=== PATIENT | male | born 1940 | race Caucasian/White ===

== ENCOUNTER 2020-07-10 10:49 | Inpatient (IN) | payer OTHER, MEDICARE ==
[~2020-07-10] VITALS: Ht 172.7 cm; Wt 86.4 kg
[~2020-07-10 10:49] MED LIST: ASPI81CH PO; CHOL10002; Cholecalciferol1 GM MC; Diclofenac Sod2.5 ML; HYDRA25 PO; INS70/30PN SC; INSULANPEN; LISI5 PO; OFLO.3OPSO; OMEP20ER PO; POTCHL20ER PO; PRED1SU; RAMI5 PO; SPIR50 PO
[2020-07-10 12:00] LABS: BASOPHILS ABSOLUTE AUTO 0.03 K/mm3 (0.00-0.23); BASOPHILS PERCENT AUTO 0 % (0-2); EOSINOPHILS PERCENT AUTO 0 % (0-6); Hematocrit 38.6 % (37.0-53.0); Hemoglobin 12.6 g/dL (13.5-17.5); IMMATURE GRAN ABSOLUTE AUTO 0.03 K/mm3 (0.00-0.10); IMMATURE GRAN PERCENT AUTO 0 % (0-1); LYMPHOCYTES ABSOLUTE AUTO 0.25 K/mm3 (0.84-5.20); LYMPHOCYTES PERCENT AUTO 2 % (21-46); MONOCYTES ABSOLUTE AUTO 0.38 K/mm3 (0.16-1.47); MONOCYTES PERCENT AUTO 4 % (4-13); Mean Corpuscular HGB 29.4 pg (26.0-34.0); Mean Corpuscular HGB Conc 32.6 g/dL (31.5-36.5); Mean Corpuscular Volume 90 fL (80-100); Mean Platelet Volume 11.9 fL (9.1-12.4); NEUTROPHILS ABSOLUTE AUTO 10.25 K/mm3 (1.96-9.15); NEUTROPHILS PERCENT AUTO 94 % (41-73); Platelet Count 117 K/mm3 (150-400); RDW Coefficient Variation 13.3 % (11.7-14.2); RDW Standard Deviation 43.9 fL (35.1-46.3); Red Blood Cell Count 4.28 M/mm3 (4.30-5.90); White Blood Cell Count 10.94 K/mm3 (4.00-11.30)
[2020-07-10 12:22] LABS: Albumin, Blood 3.7 g/dL (3.4-5.0); Albumin/Globulin Ratio 0.9 (0.8-1.8); Bilirubin, Total 0.9 mg/dL (0.1-1.0); Bun/Creatinine Ratio 31.7 (12.0-20.0); Calcium, Blood 8.8 mg/dL (8.5-10.1); Creatine Kinase MB 3.5 ng/mL (0.0-3.6); Creatine Kinase MB Index 0.9 (0.0-4.0); Creatinine, Blood 2.02 mg/dL (0.60-1.20); Globulin, Blood 3.9 g/dL (2.2-4.0); Potassium, Blood 5.6 mmol/L (3.5-5.5); Total Protein, Blood 7.6 g/dL (6.4-8.2); Troponin I 0.016 ng/mL (0.000-0.040)
[2020-07-10] MEDS ORDERED: INSULANPEN SC (14:53)
[2020-07-10] MEDS ORDERED: TAMS.4ER PO (14:53)
[2020-07-10] MEDS ORDERED: AMLO10 PO (14:54)
[2020-07-10] MEDS ORDERED: ALBU90OI INH (14:54)
[2020-07-10] MEDS ORDERED: CODACE30 PO (14:55)
[2020-07-10] MEDS ORDERED: CYCLOBENZAPRINE5 MG PO (14:55)
[2020-07-10] MEDS ORDERED: FAMO20 PO (14:56)
[2020-07-10] MEDS ORDERED: DEXTRAN/GLYCER/HYPRO BOTHEYES (14:58)
[2020-07-10] MEDS ORDERED: ISODIN20 PO (14:58)
[2020-07-10] MEDS ORDERED: TORS10 PO (14:59)
[2020-07-10] MEDS ORDERED: MULVITA PO (14:59)
[2020-07-10] MEDS ORDERED: ZESTRIL40 M1 PO (14:59)
[2020-07-10 15:04] LABS: Percent Saturation 12.4 % (20.0-50.0)
[2020-07-10 15:11] LABS: Source, Urine Clean Catch
[2020-07-10 15:17] LABS: Appearance, Urine Clear (Clear); Bilirubin, Urine Neg (Neg); Blood, Urine Neg (Neg); Color, Urine Yellow (P-Yellow); Glucose Qualitative, Urine Neg (Neg); Ketones, Urine 1+ (Neg); Leukocyte Esterase, Urine Neg (Neg); Nitrite, Urine Neg (Neg); Protein, Urine Neg (Neg); Urobilinogen, Urine NORM (Normal)
[2020-07-10 16:21] LABS: Thyroid Stimulating Hormone 0.435 uIU/mL (0.360-4.800)
--- NOTE | 2020-07-10 19:58 | NUR ---
PT PULLED OWN IV OUT EXPLAINING HE'D DONE SO "FOR THE FOOTBALL GAME ON TV". HE SEEMS ORIENTED X2-3 BUT IS VERY FORGETFULL AND IMPULSIVE. BED ALARM ON. IV REPLACED AND SECURED WELL BY KNUCKLER (BETH NUR) W/PT EDUCATED. HE EXPRESSED UNDERSTANDING BUT RESTRAINTS MAY BE REQUIRED IF PT CONT'S TO HAVE UNPREDICTABLE BEHAVIOR.
--- NOTE | 2020-07-11 04:32 | NUR ---
SUMMARY: PT ORIENTED TO SELF AND FAMILY BUT IS VERY FORGETFULL AND IMPULSIVE. HE'S CONFUSED TO PLACE AND REPEATEDLY THINKS HE'S HOME DESPITE REORIENTATION. HE PULLED HIS IV OUT AT START OF SHIFT AND REMOVED TELEMETRY T/O NOCTE. IV WAS REPLACED W/IVF RESTARTED. HIS R.ARM REMAINS IN A SLING D/T HUMERUS FX AND BED ALARM IS ON FOR FALL RISK. PT FOUND DOWN PRIOR TO ADMIT. JADE RECIEVED X1 FOR TOLERABLE RELIEF OF R.SHOULDER PAIN. HE ATTEMPTED TO USED URINAL W/O SUCCESS BUT VOIDED/HAD X1 SM.HARD BM VIA 1PA PIVOT T/F TO BSC. PT ATTENDS WERE DAMP W/JUVENAL CARE/ATTENDS CHANGE COMPLETED. HE REMAINS ON TELEMETRY IN NSR W/BBB AND 1ST DEGREE BLOCK AT 60'S-80'S BPM. NO ACUTE CHANGES, VSS/AFEBRILE. [facility] MED LIST NEEDS REVISED PER KANWAL, PREVIOUS DAY RN. WILL REPORT/ENSURE DAY RN AWARE.
[2020-07-11 04:39] LABS: BASOPHILS ABSOLUTE AUTO 0.04 K/mm3 (0.00-0.23); BASOPHILS PERCENT AUTO 0 % (0-2); EOSINOPHILS ABSOLUTE AUTO 0.06 K/mm3 (0.00-0.68); EOSINOPHILS PERCENT AUTO 1 % (0-6); Hematocrit 34.4 % (37.0-53.0); Hemoglobin 11.1 g/dL (13.5-17.5); IMMATURE GRAN ABSOLUTE AUTO 0.03 K/mm3 (0.00-0.10); IMMATURE GRAN PERCENT AUTO 0 % (0-1); LYMPHOCYTES ABSOLUTE AUTO 0.75 K/mm3 (0.84-5.20); LYMPHOCYTES PERCENT AUTO 7 % (21-46); MONOCYTES ABSOLUTE AUTO 0.94 K/mm3 (0.16-1.47); MONOCYTES PERCENT AUTO 9 % (4-13); Mean Corpuscular HGB 29.1 pg (26.0-34.0); Mean Corpuscular HGB Conc 32.3 g/dL (31.5-36.5); Mean Corpuscular Volume 90 fL (80-100); Mean Platelet Volume 11.9 fL (9.1-12.4); NEUTROPHILS ABSOLUTE AUTO 8.26 K/mm3 (1.96-9.15); NEUTROPHILS PERCENT AUTO 82 % (41-73); Platelet Count 125 K/mm3 (150-400); RDW Coefficient Variation 13.3 % (11.7-14.2); RDW Standard Deviation 44.2 fL (35.1-46.3); Red Blood Cell Count 3.81 M/mm3 (4.30-5.90); White Blood Cell Count 10.08 K/mm3 (4.00-11.30)
[2020-07-11 05:01] LABS: Albumin, Blood 3.2 g/dL (3.4-5.0); Albumin/Globulin Ratio 0.9 (0.8-1.8); Bilirubin, Total 0.9 mg/dL (0.1-1.0); Bun/Creatinine Ratio 38.7 (12.0-20.0); Calcium, Blood 7.9 mg/dL (8.5-10.1); Creatinine, Blood 1.5 mg/dL (0.60-1.20); Globulin, Blood 3.4 g/dL (2.2-4.0); Magnesium, Blood 2.8 mg/dL (1.6-2.4); Potassium, Blood 4.8 mmol/L (3.5-5.5); Total Protein, Blood 6.6 g/dL (6.4-8.2)
--- NOTE | 2020-07-11 19:49 | NUR ---
bsr shared with noc nurse, pt resting comfortably, call light in reach
--- NOTE | 2020-07-11 20:25 | NUR ---
ASSUMED CARE. IKER AOX1, UNABLE TO STATE ANSWER TO OTHER ORIENTATION QUESTIONS. PLEASANT AND COOPERATIVE. DOES REMEMBER HE FELL. DENIES PAIN OR DISCOMFORT. RIGHT ARM IN SLING, BRUISING NOTED. DENIED NUMBNESS AND TINGLING. GOOD CIRC ON FINGERS. NO EDEMA NOTED. ATTENDS CHANGED. REPOSITIONED UP IN BED. IVF INFUSING WELL. BED ALARM ON, CALL LIGHT IS IN REACH. PM MEDS GIVEN.
--- NOTE | 2020-07-12 01:31 | NUR ---
CAMERA MONITOR CALLED. IKER WAS TRYING TO GET UP OUT OF BED. HE IS VERY CONFUSED AND THINKS HE HAS TO GET HIS CREW READY TO GO GET GOLD BEFORE THE OTYHER TEAMS. STATES HE HAS TO DO IT NO MATTER WHAT. CAN NOT REMEMBER WHERE HE IS AT OR WHAT IS GOING ON. VEST ON.
--- NOTE | 2020-07-12 05:25 | NUR ---
SHIFT SUMMARY: AOX2 KNOWS NAME, AND EVENT. CONFUSED ON OTHER ASPECTS. INSISTED LAST NIGHT THAT HE HAD TO GET UP AND GET A TEAM TOGETHER BEFORE EVERONE ELSE DOES TO GO GET THE MILLIONS OF MONEY IN [place] [place]. HE ALSO CONTINUED TO STATE HE WAS GOING TO SHOOT PEOPLE, AND ALOT OF PEOPLE ARE GOING TO . HE FOLLOWED DIRECTION WELL. PETER VEST REMAINED IN USE. SLING TO RIGHT SHOULDER STILL IN PLACE. DENIED ANY PAIN OR DISCOMFORT OTHER THEN WHEN HE MOVED THE ARM. INCONTIENT OF URINE. VS WNL, AFEBRILE. REPOSITIONED PRN. TELE SINUS WITH OCCATIONAL PVC'S. IVF INFUSING T/O NIGHT. CALL LIGHT WITH IN REACH, MED ALARM IS ON.
[2020-07-12 11:59] LABS: Anion Gap 6 mmol/L (6-16); Blood Urea Nitrogen 26 mg/dL (8-24); Bun/Creatinine Ratio 25.7 (12.0-20.0); CO2, Blood 21 mmol/L (21-32); Chloride, Blood 119 mmol/L (98-108); Creatinine, Blood 1.01 mg/dL (0.60-1.20); Glomerular Filtration Rate >60 (60-); Glucose, Blood 154 mg/dL (70-99); Potassium, Blood 4.2 mmol/L (3.5-5.5); Sodium, Blood 146 mmol/L (136-145)
--- NOTE | 2020-07-12 19:07 | NUR ---
SHIFT SUMMARY: NO ACUTE CHANGES TO REPORT THIS SHIFT. PT ALERT; ORIENTED TO SELF; IMPULSIVE; CONFUSED; PETER VEST IN PLACE FOR PT SAFETY. NO C/O PAIN THIS SHIFT. NS @ 125 CONTINUING; PT & OT FOLLOWING. REPORT GIVEN TO ONCOMING RN.
--- NOTE | 2020-07-12 21:55 | NUR ---
ASSUMED CARE. AOX2, KNOWS MONTH AND YEAR BUT IS STILL HAVING TROUBLE REMEMBER EVERYTHING ELSE. DOES STATES HE KNOWS HIS MEMORY IS NOT RIGHT. BRUISING TO RIGHT SHOULDER IS GETTING BETTER, STILL SWOLLEN. PAIN ONLY WITH MOVEMENT. SUPPORTED THE ARM ON PILLOW. REPOSITIONED IN BED. IVF INFUSING WELL. DENIED NEED FOR PAIN. STATES HE STILL VERY SLEEPY. PM MEDS GIVEN. NO OTHER CONCERNS TO NOTE. CALL LIGHT IN REACH, BED ALARM ON.
--- NOTE | 2020-07-13 05:51 | NUR ---
SHIFT SUMMARY: CLEARER COGNITION TONIGHT, WAS ABLE TO STATE DAY AND YEAR, AND ACKNOWLEGE HE IS HAVING TROUBLE REMEMBERING. DID STATES HE IS SLEEPING ALOT. RIGHT SHOULDER STILL SWOLLEN BUT BRUISING IS HEALING. OFFERED ICE BUT HE SAID IT WOULD BE TO COLD. NO PAIN MEDICATION NOTED. VS WNL, AFEBRILE. INCONTIENT OF URINE AND BOWEL. NO SKIN BREAKDOWN. CALL LIGHT IS IN REACH, BED ALARM ON.
--- NOTE | 2020-07-13 16:20 | NUR ---
SUMMARY PT IS A/O X2, ANSWER BASIC QUESTIONS APPROP THIS AM HOWEVER VERY FORGETFUL OF EVENTS LEADING TO ADMIT, STATE UNABLE TO RECALL HOW HE FX R SHOULDER, STATE "I GOT SHOT", REQUIRE REORIENTTATION. STATE CONTINIUNG R SHOULDER PAIN THAT INCREASES w MOVEMENT, CONINUES IN R ARM SLING. HAVE GIVEN PRN TYLENOL & NORCO FOR RELIEF/CONTROL TODAY. HE PARTICIPATE w PT/OT. PETER RESTRAINT D/C THIS AM, PT HAS BEEN CALM/COOPERATIVE, DOES NOT ATTEMPT UP W/O ASSIST. VSS/AFEBRILE.
--- NOTE | 2020-07-14 04:44 | NUR ---
SHIFT SUMMARY- PT. A&O, FORGETFUL AT TIMES. C/O R SHOULDER PAIN LAST NIGHT, MEDICATED PER EMAR WITH GOOD EFFECT. R SHOULDER/ARM IN SLING, TOLERATING WELL. PT. CONT/INCONT, ATTENDS IN PLACE AND USES URINAL IN BED. ON BEDREST LAST NIGHT. DENIED ANY OTHER NEEDS DURING THE NIGHT, VSS. CALL LIGHT WITHIN REACH, SIDE RAILS UPX2, AND BED ALARM ON FOR SAFETY. WILL CONT TO MONITOR.
--- NOTE | 2020-07-14 15:53 | NUR ---
SUMMARY PT IS A/O X3, HE CONTINUES TO BE FORGETFUL OF EVENTS R/T R SHOULDER FX HOWEVER MENTATION SEEMS TO BE IMPROVING DAILY. HE IS CALM, PLEASANT/COOPERATIVE. HE HAS BEEN UP PARTICIPATING w AYALA, UP IN CHAIR. R ARM IN SLING. R SHOULDER CONTINUES SWOLLEN/BRUISED S/P FX, HE STATES PAIN w MOVEMENT, HAVE GIVEN TYLENOL & NORCO FOR PAIN RELIEF/CONTROL. VSS/AFEBRILE. PLAN FOR SNF WHEN APPROP.
--- NOTE | 2020-07-15 04:38 | NUR ---
SHIFT SUMMARY- PT. PLEASANT AND COOPERATIVE WITH CARE. FORGETFUL, MEMORY DEFICIT APPEARS TO BE IMPROVING. PT. CAN BE IMPULSIVE AT TIMES, BUT EASILY REDIRECTABLE. MEDICATED 1X LAST NIGHT FOR R SHOULDER PAIN WITH GOOD EFFECT. R ARM REMAINS IN SLING. NO ACUTE EVENTS OVERNIGHT, VSS. CALL LIGHT WITHIN REACH, SIDE RAILS UPX2, AND BED ALARM ON. WILL CONT TO MONITOR.
--- NOTE | 2020-07-15 17:54 | NUR ---
SHIFT SUMMARY PT IS AOX3. PT DENIES PAIN, N/V, SOB. PT WORKED WITH PT/OT AND IS A ONE PERSON ASSIST FOR TRANSFERS. PLAN IS TO DC TO SNF, [facility]. PT IS PLEASANT. PT APPETITE IS GOOD. PT'S SISTER VISITED TODAY. PT IS IN BED, CALL LIGHT IN REACH, BED IN LOW POSITION.
--- NOTE | 2020-07-16 03:48 | NUR ---
SUPPLY CHAIN DEVELOPMENT MANAGER SUMMARY A/OX 2-3, APPEARED TO SLEEP T/O THE NIGHT. C/O DISCOMFORT IN R. SHOULDER WITH PASSIVE MOTION. TELE IN PLACE RUNNING SR IN THE 80S. DENIES SOB. VSS, NO ACUTE CHANGES AT THIS TIME. BED IN LOWEST POSITION, ALARM ON, CALL LIGHT WITHIN REACH. WILL CONTINUE TO MONITOR AND REPORT TO ONCOMING RN.
[2020-07-16 12:17] LABS: BASOPHILS ABSOLUTE AUTO 0.04 K/mm3 (0.00-0.23); BASOPHILS PERCENT AUTO 1 % (0-2); EOSINOPHILS ABSOLUTE AUTO 0.09 K/mm3 (0.00-0.68); EOSINOPHILS PERCENT AUTO 1 % (0-6); Hemoglobin 9.9 g/dL (13.5-17.5); IMMATURE GRAN ABSOLUTE AUTO 0.09 K/mm3 (0.00-0.10); IMMATURE GRAN PERCENT AUTO 1 % (0-1); LYMPHOCYTES ABSOLUTE AUTO 0.78 K/mm3 (0.84-5.20); LYMPHOCYTES PERCENT AUTO 9 % (21-46); MONOCYTES PERCENT AUTO 8 % (4-13); Mean Corpuscular HGB 29.6 pg (26.0-34.0); Mean Corpuscular Volume 90 fL (80-100); Mean Platelet Volume 11.2 fL (9.1-12.4); NEUTROPHILS ABSOLUTE AUTO 6.79 K/mm3 (1.96-9.15); NEUTROPHILS PERCENT AUTO 80 % (41-73); Platelet Count 170 K/mm3 (150-400); RDW Coefficient Variation 13.4 % (11.7-14.2); Red Blood Cell Count 3.35 M/mm3 (4.30-5.90); White Blood Cell Count 8.49 K/mm3 (4.00-11.30)
[2020-07-16 12:34] LABS: Alanine Aminotransfer (ALT/SGP 54 U/L (12-78); Albumin, Blood 2.4 g/dL (3.4-5.0); Albumin/Globulin Ratio 0.8 (0.8-1.8); Alk Phos 86 U/L (50-136); Anion Gap 5 mmol/L (6-16); Aspartate Aminotrans (AST/SGOT 39 U/L (12-37); Bilirubin, Total 0.8 mg/dL (0.1-1.0); Blood Urea Nitrogen 14 mg/dL (8-24); Bun/Creatinine Ratio 16.4 (12.0-20.0); CO2, Blood 28 mmol/L (21-32); Chloride, Blood 111 mmol/L (98-108); Creatinine, Blood 0.85 mg/dL (0.60-1.20); Globulin, Blood 3.2 g/dL (2.2-4.0); Glomerular Filtration Rate >60 (60-); Glucose, Blood 153 mg/dL (70-99); Potassium, Blood 4.1 mmol/L (3.5-5.5); Sodium, Blood 144 mmol/L (136-145); Total Protein, Blood 5.6 g/dL (6.4-8.2)
--- NOTE | 2020-07-16 19:13 | NUR ---
SHIFT SUMMARY IKER GOT UP WITH PT TODAY TO CHAIR WITH AO1 AND A CANE. R ARM NWB IN A SLING. R SHOULDER JOINT VERY SWOLLEN AND BRUISED. TELE AND CBG'S DC'D. LOW GRADE TEMP OF 100.3, DR PIERRE NOTIFIED. PT STATES HE FELT 'BAD' AND DIDN'T WANT TO EAR BREAKFAST OR LUNCH, DR PIERRE AWARE. FEELING BETTER THIS EVENING, AND ATE A FULL DINNER. TOOK TWO DOSES PO PAIN MEDS TO GOOD EFFECT. CALL LIGHT IN REACH, REPORT GIVEN TO NIGHT NURSE
--- NOTE | 2020-07-17 03:44 | NUR ---
CANNERY WORKER SUMMARY A/O 2-3. UP TO BATHROOM WITH 1 ASSIST AND CANE. APPEARED TO SLEEP T/O THE NIGHT. PLEASANT AND COOPERATIVE. DENIES SOB. REPORTS SOME PAIN TO R. SHOULDER WITH PASSIVE MOTION. VSS, NO ACUTE CHANGES AT THIS TIME. BED IN LOWEST POSITION, ALARM ON, CALL LIGHT WITHIN REACH. REMOTE VIDEO MONITORING VERIFIED. WILL CONTINUE TO MONITOR AND REPORT TO ONCOMING RN.
--- NOTE | 2020-07-17 16:37 | NUR ---
PATIENT HAS BEEN VERY TIRED AND SLEEPING FOR THE MAJORITY OF THE DAY. PLEASANT AND COOPERATIVE WITH STAFF. VITALS HAVE BEEN STABLE AND WNL. NO COMPLAINTS OF PAIN OR DISCOMFORT. PATIENT CONTINUES TO SLEEP IN HIS BED AT THIS TIME. CALL LIGHT IS WITHIN REACH.
[2020-07-18 05:47] LABS: Hematocrit 31.6 % (37.0-53.0); Hemoglobin 10.4 g/dL (13.5-17.5); Mean Corpuscular HGB 29.8 pg (26.0-34.0); Mean Corpuscular HGB Conc 32.9 g/dL (31.5-36.5); Mean Corpuscular Volume 91 fL (80-100); Mean Platelet Volume 11.1 fL (9.1-12.4); Platelet Count 174 K/mm3 (150-400); RDW Coefficient Variation 13.9 % (11.7-14.2); RDW Standard Deviation 45.1 fL (35.1-46.3); Red Blood Cell Count 3.49 M/mm3 (4.30-5.90); White Blood Cell Count 8.66 K/mm3 (4.00-11.30)
--- NOTE | 2020-07-18 05:47 | NUR ---
SHIFT SUMMARY AOX3-UNAWARE SITUATION THAT BROUGHT HIM TO HOSPITAL. FORGETFUL. FOLLOWS DIRECTIONS. VSS. REPORTS 5/10 PAIN IN R SHOULDER, WORSE c MOVEMENT, MEDICATED 2X c NORCO. R ARM IN SLING, HAS BRUISING & YELLOW DISCOLORATION T/O SKIN ON UPPER ARM. R HAND DEPENDENT EDEMA, ELEVATED ARM/HAND ON PILLOW, EDEMA HAS DECREASED THIS AM. CONTINENT OF URINE, USES URINAL. PLAN TO DC TO SNF FOR THERAPY. CALL LIGHT & BED ALARM ON FOR SAFETY. WILL MONITOR.
[2020-07-18] MEDS ORDERED: ACET325 PO (11:29)
[2020-07-18] MEDS ORDERED: ALBU90OI INH (11:30)
[2020-07-18] MEDS ORDERED: DOCUZEN 8.6-501 EACH PO (11:31)
[2020-07-18] MEDS ORDERED: MIRALAX17 GM PO (11:32)
[2020-07-18] MEDS ORDERED: HYDR1TAB94 PO (11:32)
--- NOTE | 2020-07-18 14:46 | NUR ---
DISCHARGE NOTE PATIENT DISCHARGED TO HOME WITH HOME HEALTH. PATIENT TO LIVE WITH SISTER. PATIENT ALERT AND ORIENTED THROUGHOUT THIS SHIFT. PATIENT WORKED WITH PHYSICAL THERAPY THIS SHIFT, AMBULATED IN THE HALLWAY WITH A 4-POINT CANE. PATIENT TOLERATED AMBULATION WELL. IV REMOVED PRIOR TO DISCHARGE. PATIENT OCCASIONALLY FORGETFUL THIS SHIFT. PATIENT SITTING UP IN BED FOR MOST OF THIS SHIFT. PATIENT PROVIDED WITH DISCHARGE INFORMATION WITH SISTER IN THE ROOM. PATIENT TO VEHICLE VIA WHEELCHIAR BY CORTNEY.
== END 2020-07-18 14:30 | disposition home health service (06) | DRG 682 ==
LOC: ER 10:49 → MEDS 14:23 → ENPENDDIS 07-18 11:03 → MEDS 07-18 14:30
PROVIDERS: Internal Medicine; Physician Assistant; ADMIT Internal Medicine
DX: N17.9 Acute kidney failure, unspecified (principal); G93.41 Metabolic encephalopathy; G92 Toxic encephalopathy; S42.201A Unspecified fracture of upper end of right humerus, initial encounter for closed fracture; F03.91 Unspecified dementia, unspecified severity, with behavioral disturbance; F05 Delirium due to known physiological condition; E86.0 Dehydration; G20 Parkinson's disease; W19.XXXA Unspecified fall, initial encounter; D63.1 Anemia in chronic kidney disease; I25.10 Atherosclerotic heart disease of native coronary artery without angina pectoris; I12.9 Hypertensive chronic kidney disease with stage 1 through stage 4 chronic kidney disease, or unspecified chronic kidney disease; E11.22 Type 2 diabetes mellitus with diabetic chronic kidney disease; N18.30 Chronic kidney disease, stage 3 unspecified; G89.29 Other chronic pain; M54.9 Dorsalgia, unspecified; I25.2 Old myocardial infarction; Z95.1 Presence of aortocoronary bypass graft; Z87.891 Personal history of nicotine dependence; Z79.4 Long term (current) use of insulin; Z85.46 Personal history of malignant neoplasm of prostate; R54 Age-related physical debility
CPT/HCPCS: 36415; 70450; 73030; 80048; 80053; 81003; 82140; 82550; 82553; 82607; 82728; 82746; 82947; 83540; 83550; 83735; 83880; 84443; 84484; 85025; 85027; 93005; 93010; 94760; 96361; 96374; 96376; 97110; 97116; 97129; 97130; 97162; 97165; 97530; 97535; 99285-25; A9270; J1644; J1885; J7030

== ENCOUNTER 2022-06-27 15:18 | Inpatient (IN) | payer OTHER ==
[~2022-06-27] VITALS: Ht 172.7 cm; Wt 66.5 kg
[~2022-06-27 15:18] MED LIST changes: +ACET325 PO; +ALBU90OI INH; +AMLO10 PO; +CODACE30 PO; +CYCLOBENZAPRINE5 MG PO; +DEXTRAN/GLYCER/HYPRO BOTHEYES; +DOCUZEN 8.6-501 EACH PO; +FAMO20 PO; +HYDR1TAB94 PO; +INSULANPEN SC; +ISODIN20 PO; +MIRALAX17 GM PO; +MULVITA PO; +TAMS.4ER PO; +TORS10 PO; +ZESTRIL40 M1 PO
[2022-06-27 16:57] LABS: BASOPHILS ABSOLUTE AUTO 0.03 K/mm3 (0.00-0.23); BASOPHILS PERCENT AUTO 0 % (0-2); EOSINOPHILS PERCENT AUTO 0 % (0-6); Hemoglobin 13.1 g/dL (13.5-17.5); IMMATURE GRAN ABSOLUTE AUTO 0.04 K/mm3 (0.00-0.10); IMMATURE GRAN PERCENT AUTO 0 % (0-1); LYMPHOCYTES ABSOLUTE AUTO 0.54 K/mm3 (0.84-5.20); LYMPHOCYTES PERCENT AUTO 5 % (21-46); MONOCYTES ABSOLUTE AUTO 0.88 K/mm3 (0.16-1.47); MONOCYTES PERCENT AUTO 8 % (4-13); Mean Corpuscular HGB 29.1 pg (26.0-34.0); Mean Corpuscular HGB Conc 33.6 g/dL (31.5-36.5); Mean Corpuscular Volume 87 fL (80-100); NEUTROPHILS ABSOLUTE AUTO 9.93 K/mm3 (1.96-9.15); NEUTROPHILS PERCENT AUTO 87 % (41-73); Platelet Count 123 K/mm3 (150-400); RDW Coefficient Variation 15.5 % (11.7-14.2); RDW Standard Deviation 49.7 fL (35.1-46.3); White Blood Cell Count 11.42 K/mm3 (4.00-11.30)
[2022-06-27 17:04] LABS: Influenza A, PCR NEGATIVE (NEGATIVE); Influenza B, PCR NEGATIVE (NEGATIVE); Resp Syncytial Virus, PCR NEGATIVE (NEGATIVE); SARS-Cov-2 (COVID-19) PCR, MMC NEGATIVE (NEGATIVE)
[2022-06-27 17:20] LABS: Albumin/Globulin Ratio 0.7 (0.8-1.8); Bilirubin, Total 2.2 mg/dL (0.1-1.0); Bun/Creatinine Ratio 36.7 (12.0-20.0); Calcium, Blood 9.5 mg/dL (8.5-10.1); Creatinine, Blood 1.66 mg/dL (0.60-1.20); Globulin, Blood 4.2 g/dL (2.2-4.0); Potassium, Blood 3.6 mmol/L (3.5-5.5); Total Protein, Blood 7.2 g/dL (6.4-8.2)
[2022-06-27 18:02] LABS: Source, Urine Clean Catch
[2022-06-27 18:11] LABS: Appearance, Urine Clear (Clear); Bilirubin, Urine Neg (Neg); Blood, Urine 4+ (Neg); Color, Urine Yellow (P-Yellow); Glucose Qualitative, Urine Neg (Neg); Ketones, Urine Neg (Neg); Leukocyte Esterase, Urine Neg (Neg); Nitrite, Urine Neg (Neg); Protein, Urine 1+ (Neg); Urobilinogen, Urine 1+ (Normal)
[2022-06-27 18:19] LABS: Bacteria Rare /hpf; Hyaline Casts 0-2 /lpf (0-2); Squamous Epithelial Cells Not Seen /hpf (Few); White Blood Cells, Urine 0-2 /hpf (0-5)
[2022-06-27 21:15] LABS: Percent Saturation 17.9 % (20.0-50.0)
--- NOTE | 2022-06-28 04:16 | NUR ---
SHIFT SUMMARY PT ARRIVED TO FLOOR AT 2200, ASSESSMENT COMPLETE, ADMISSION COMPLETE. SKIN ASSESSMENT DONE. NOTED L KNEE PRESSURE ULCER, UPPER BACK EXCORIATION, PICTURES IN CHART, COVERED WOUNDS WITH MEPILEX. ALSO BLE SCABS/SCALING/DUSKY. PT ORIENTED X4, FORGETFUL BUT KNOWS GENERAL IDEA. PT MORE FORGETFUL AND RESTLESS NIGHT WENT ON. PT MIXED CONTINENCE. REMAINED IN BED DURING SHIFT. ON TELE, NSR WITH MULTIPLE PVC'S. NPO FOR SPEECH EVAL, Q 6 BG CHECKS. DENIES PAIN/SOB/ ANY OTHER S/S OF DISTRESS. FREQUENT ROUNDING TO ASSIST PT NEEDS, CALL LIGHT IN REACH.
[2022-06-28 05:29] LABS: BASOPHILS ABSOLUTE AUTO 0.02 K/mm3 (0.00-0.23); BASOPHILS PERCENT AUTO 0 % (0-2); EOSINOPHILS ABSOLUTE AUTO 0.02 K/mm3 (0.00-0.68); EOSINOPHILS PERCENT AUTO 0 % (0-6); Hematocrit 34.2 % (37.0-53.0); Hemoglobin 11.5 g/dL (13.5-17.5); IMMATURE GRAN ABSOLUTE AUTO 0.03 K/mm3 (0.00-0.10); IMMATURE GRAN PERCENT AUTO 0 % (0-1); LYMPHOCYTES ABSOLUTE AUTO 0.82 K/mm3 (0.84-5.20); LYMPHOCYTES PERCENT AUTO 9 % (21-46); MONOCYTES ABSOLUTE AUTO 0.81 K/mm3 (0.16-1.47); MONOCYTES PERCENT AUTO 8 % (4-13); Mean Corpuscular HGB 28.8 pg (26.0-34.0); Mean Corpuscular HGB Conc 33.6 g/dL (31.5-36.5); Mean Corpuscular Volume 86 fL (80-100); Mean Platelet Volume 11.7 fL (9.1-12.4); NEUTROPHILS ABSOLUTE AUTO 7.91 K/mm3 (1.96-9.15); NEUTROPHILS PERCENT AUTO 82 % (41-73); Platelet Count 136 K/mm3 (150-400); RDW Coefficient Variation 15.7 % (11.7-14.2); RDW Standard Deviation 49.5 fL (35.1-46.3); Red Blood Cell Count 3.99 M/mm3 (4.30-5.90); White Blood Cell Count 9.61 K/mm3 (4.00-11.30)
[2022-06-28 06:03] LABS: Albumin, Blood 2.5 g/dL (3.4-5.0); Albumin/Globulin Ratio 0.7 (0.8-1.8); Bilirubin, Total 1.3 mg/dL (0.1-1.0); Bun/Creatinine Ratio 38.6 (12.0-20.0); Calcium, Blood 8.8 mg/dL (8.5-10.1); Creatinine, Blood 1.71 mg/dL (0.60-1.20); Globulin, Blood 3.7 g/dL (2.2-4.0); Potassium, Blood 3.2 mmol/L (3.5-5.5); Total Protein, Blood 6.2 g/dL (6.4-8.2)
--- NOTE | 2022-06-28 12:47 | NUR ---
REPORTED CHANGES IN PT HEART RHYTHM TO DR LUA. NO NEW ORDERS GIVEN. PT A/O NO S/S OF ACUTE DISTRESS, WILL CONTINUE TO MONITOR.
--- NOTE | 2022-06-28 16:48 | NUR ---
Upon receiving a referral for spiritual care, I visit the patient. Patient immediately tells me about his medical problems (which basically all he could articulate is that he falls sometimes).He then talks at length about his life: tours in the [employer], several careers in [employer] his family and his marriage and divorce. He shares that he is not uatsdin but believes in God. He talks about finishing his life well and avoiding falls. I provide therapeutic listening, gentle career technical counselor and prayer. Candelarialouannsuzie responds well and is encouraged by the telling of his own stories. He show signs of an elevated mood.
--- NOTE | 2022-06-28 19:02 | NUR ---
PT ALERT NO S/S OF ACUTE DISTRESS, SAFETY MEASURES IN PLACE REPORT GIVEN TO ON COMING NURSE.
--- NOTE | 2022-06-29 03:28 | NUR ---
SHIFT SUMMARY NO OVERNIGHT EVENTS. PER PT DIDNT SLEEP VERY WELL. ORIENTED X3/4, KNOWS GENERAL IDEAS, FORGETFUL. MORE FIDGETY AND NEEDS REMINDING OF PLAN DURING NIGHT. AMBULATED TO BATHROOM SBA FWW FOR A BOWEL MOVEMENT. TOOK MEDS WHOLE IN [place]UR[place]. DENIES ANY PAIN/SOB/ S/S OF DISTRESS. CALL LIGHT IN REACH, FREQUENT ROUNDING TO ASSESS NEEDS.
[2022-06-29 05:58] LABS: BASOPHILS ABSOLUTE AUTO 0.04 K/mm3 (0.00-0.23); BASOPHILS PERCENT AUTO 1 % (0-2); EOSINOPHILS ABSOLUTE AUTO 0.08 K/mm3 (0.00-0.68); EOSINOPHILS PERCENT AUTO 1 % (0-6); Hematocrit 31.7 % (37.0-53.0); Hemoglobin 10.3 g/dL (13.5-17.5); IMMATURE GRAN ABSOLUTE AUTO 0.04 K/mm3 (0.00-0.10); IMMATURE GRAN PERCENT AUTO 1 % (0-1); LYMPHOCYTES ABSOLUTE AUTO 0.99 K/mm3 (0.84-5.20); LYMPHOCYTES PERCENT AUTO 11 % (21-46); MONOCYTES PERCENT AUTO 10 % (4-13); Mean Corpuscular HGB 28.6 pg (26.0-34.0); Mean Corpuscular HGB Conc 32.5 g/dL (31.5-36.5); Mean Corpuscular Volume 88 fL (80-100); NEUTROPHILS ABSOLUTE AUTO 6.62 K/mm3 (1.96-9.15); NEUTROPHILS PERCENT AUTO 76 % (41-73); Platelet Count 139 K/mm3 (150-400); RDW Coefficient Variation 16.3 % (11.7-14.2); RDW Standard Deviation 52.6 fL (35.1-46.3); White Blood Cell Count 8.67 K/mm3 (4.00-11.30)
[2022-06-29 06:16] LABS: Albumin, Blood 2.3 g/dL (3.4-5.0); Albumin/Globulin Ratio 0.6 (0.8-1.8); Bilirubin, Total 0.7 mg/dL (0.1-1.0); Bun/Creatinine Ratio 31.1 (12.0-20.0); Creatinine, Blood 2.41 mg/dL (0.60-1.20); Globulin, Blood 3.7 g/dL (2.2-4.0); Potassium, Blood 3.6 mmol/L (3.5-5.5)
[2022-06-29 15:37] LABS: Bun/Creatinine Ratio 38.1 (12.0-20.0); Calcium, Blood 8.2 mg/dL (8.5-10.1); Creatinine, Blood 1.94 mg/dL (0.60-1.20); Potassium, Blood 3.6 mmol/L (3.5-5.5)
--- NOTE | 2022-06-29 19:18 | NUR ---
PT RESTING IN BED, NO S/S OF ACUTE DISTRESS. SAFETY MEASURES IN PLACE REPORT GIVEN TO ON COMING NURSE.
--- NOTE | 2022-06-30 04:24 | NUR ---
SHIFT SUMMARY 82 YR M ADMITTED ON 06/27/22 FOR ALTERED MENTAL STATUS. FULL CODE. NO ACUTE CHANGES THIS SHIFT. PT TOOK MEDS WHOLE W/ THICKENED WATER AND WAS PLEASANT AND COOPERATIVE WITH CARE. HE HAS SLEPT FOR MOST OF THIS SHIFT AND HAS NOT CALLED FOR ASSISTANCE. BLOOD GLUCODE READING WAS 229 W/ NO COVERAGE NEEDED. HE WAS A&O X 4.
[2022-06-30 05:51] LABS: BASOPHILS ABSOLUTE AUTO 0.03 K/mm3 (0.00-0.23); BASOPHILS PERCENT AUTO 1 % (0-2); EOSINOPHILS ABSOLUTE AUTO 0.14 K/mm3 (0.00-0.68); EOSINOPHILS PERCENT AUTO 2 % (0-6); Hematocrit 30.3 % (37.0-53.0); Hemoglobin 9.9 g/dL (13.5-17.5); IMMATURE GRAN ABSOLUTE AUTO 0.03 K/mm3 (0.00-0.10); IMMATURE GRAN PERCENT AUTO 1 % (0-1); LYMPHOCYTES ABSOLUTE AUTO 0.85 K/mm3 (0.84-5.20); LYMPHOCYTES PERCENT AUTO 13 % (21-46); MONOCYTES PERCENT AUTO 11 % (4-13); Mean Corpuscular HGB 28.8 pg (26.0-34.0); Mean Corpuscular HGB Conc 32.7 g/dL (31.5-36.5); Mean Corpuscular Volume 88 fL (80-100); Mean Platelet Volume 11.5 fL (9.1-12.4); NEUTROPHILS ABSOLUTE AUTO 4.71 K/mm3 (1.96-9.15); NEUTROPHILS PERCENT AUTO 73 % (41-73); Platelet Count 127 K/mm3 (150-400); RDW Coefficient Variation 15.9 % (11.7-14.2); RDW Standard Deviation 51.8 fL (35.1-46.3); Red Blood Cell Count 3.44 M/mm3 (4.30-5.90); White Blood Cell Count 6.46 K/mm3 (4.00-11.30)
[2022-06-30 06:09] LABS: Calcium, Blood 8.1 mg/dL (8.5-10.1); Creatinine, Blood 1.54 mg/dL (0.60-1.20); Potassium, Blood 3.9 mmol/L (3.5-5.5)
--- NOTE | 2022-06-30 19:21 | NUR ---
PT RESTING IN BED NO S/S OF ACUTE DISTRESS, SAFETY MEASURES IN PLACE. REPORT GIVEN TO ON COMING NURSE.
--- NOTE | 2022-07-01 04:36 | NUR ---
I WAS NOTIFIED PER SYSTEMS ACCOUNTANT RICARDO THAT PT IS TOUCHING DOWN LOW 27.PT IS DOWN BRIEFLY ONLY AND COMING BACK UP.HOWEVER,THIS HAS HAPPENED 3-4 TIMES AND DISTANCE APART IS NOT CREATNG A PAUSE, BUT "BORDERLINE" PAUSE.PT HAS BEEN SLEEPING DURING THESE EPISODES WITH NO C/O WHEN HE WAKES.I NOTIFIED DR RUVALCABA AND WAS INSTRUCTED TO MONITOR AT THIS TIME WITH NO NEW ORDERS.
[2022-07-01 06:29] LABS: BASOPHILS ABSOLUTE AUTO 0.03 K/mm3 (0.00-0.23); BASOPHILS PERCENT AUTO 1 % (0-2); EOSINOPHILS ABSOLUTE AUTO 0.19 K/mm3 (0.00-0.68); EOSINOPHILS PERCENT AUTO 3 % (0-6); Hematocrit 30.1 % (37.0-53.0); Hemoglobin 9.6 g/dL (13.5-17.5); IMMATURE GRAN ABSOLUTE AUTO 0.02 K/mm3 (0.00-0.10); IMMATURE GRAN PERCENT AUTO 0 % (0-1); LYMPHOCYTES ABSOLUTE AUTO 1.01 K/mm3 (0.84-5.20); LYMPHOCYTES PERCENT AUTO 17 % (21-46); MONOCYTES ABSOLUTE AUTO 0.62 K/mm3 (0.16-1.47); MONOCYTES PERCENT AUTO 10 % (4-13); Mean Corpuscular HGB 28.4 pg (26.0-34.0); Mean Corpuscular HGB Conc 31.9 g/dL (31.5-36.5); Mean Corpuscular Volume 89 fL (80-100); Mean Platelet Volume 10.9 fL (9.1-12.4); NEUTROPHILS ABSOLUTE AUTO 4.14 K/mm3 (1.96-9.15); NEUTROPHILS PERCENT AUTO 69 % (41-73); Platelet Count 130 K/mm3 (150-400); RDW Coefficient Variation 15.9 % (11.7-14.2); RDW Standard Deviation 51.9 fL (35.1-46.3); Red Blood Cell Count 3.38 M/mm3 (4.30-5.90); White Blood Cell Count 6.01 K/mm3 (4.00-11.30)
[2022-07-01 06:53] LABS: Bun/Creatinine Ratio 37.6 (12.0-20.0); Calcium, Blood 8.2 mg/dL (8.5-10.1); Creatinine, Blood 1.17 mg/dL (0.60-1.20); Potassium, Blood 3.8 mmol/L (3.5-5.5)
--- NOTE | 2022-07-01 07:16 | NUR ---
SUMMARY PT WITH NO FURTHER ACUTE CHANGES.CONTINUES TO BE MONITORED ON TELE.
--- NOTE | 2022-07-02 05:04 | NUR ---
Neuro AOX4 at the begining of shift, became confused as the night progressed about time an situation. Pupils +3 PERRLA, denies headache or diziness. Able to move all extrimities, sensation intact in all extrimities. Resp Room Air Lung sounds clear in all lobes, denies SOB Cardiac, Pulses strong bilateral radial and and elida +1 bilateral pedal. Mucous membranes pink and intact. Sinus rhythym 72 with PVC's. 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 Patient remains assymptomatic. GI ADA diet, swallows pills whole. Bowel sounds audible in all quadrants. Voids in a Urinal and ambulates in the bathroom during awake hours. Denies pain with urination. Urine clear-yellow with no sedimentation or foul odor. ]\ [facility] [place] Ambulates with x1 assistance DVT prophylaxis with lovenox SQ. Labs reviewed and WNL.
[2022-07-02 06:01] LABS: BASOPHILS ABSOLUTE AUTO 0.04 K/mm3 (0.00-0.23); BASOPHILS PERCENT AUTO 1 % (0-2); EOSINOPHILS ABSOLUTE AUTO 0.13 K/mm3 (0.00-0.68); EOSINOPHILS PERCENT AUTO 2 % (0-6); Hematocrit 33.3 % (37.0-53.0); Hemoglobin 10.7 g/dL (13.5-17.5); IMMATURE GRAN ABSOLUTE AUTO 0.04 K/mm3 (0.00-0.10); IMMATURE GRAN PERCENT AUTO 1 % (0-1); LYMPHOCYTES PERCENT AUTO 14 % (21-46); MONOCYTES ABSOLUTE AUTO 0.72 K/mm3 (0.16-1.47); MONOCYTES PERCENT AUTO 9 % (4-13); Mean Corpuscular HGB 28.6 pg (26.0-34.0); Mean Corpuscular HGB Conc 32.1 g/dL (31.5-36.5); Mean Corpuscular Volume 89 fL (80-100); NEUTROPHILS ABSOLUTE AUTO 5.98 K/mm3 (1.96-9.15); NEUTROPHILS PERCENT AUTO 75 % (41-73); Platelet Count 147 K/mm3 (150-400); RDW Coefficient Variation 15.9 % (11.7-14.2); RDW Standard Deviation 52.2 fL (35.1-46.3); Red Blood Cell Count 3.74 M/mm3 (4.30-5.90); White Blood Cell Count 8.01 K/mm3 (4.00-11.30)
[2022-07-02 06:56] LABS: Anion Gap Unable to Calculate mmol/L (6-16); Blood Urea Nitrogen 28 mg/dL (8-24); Bun/Creatinine Ratio 29.5 (12.0-20.0); CO2, Blood 33 mmol/L (21-32); Calcium, Blood 8.6 mg/dL (8.5-10.1); Chloride, Blood 111 mmol/L (98-108); Creatinine, Blood 0.95 mg/dL (0.60-1.20); Glomerular Filtration Rate 79 (60-); Glucose, Blood 125 mg/dL (70-99); Potassium, Blood 3.8 mmol/L (3.5-5.5); Sodium, Blood 143 mmol/L (136-145)
--- NOTE | 2022-07-02 16:32 | NUR ---
SHIFT SUMMARY- PT IS ALERT, PLESANT AND COOPERATIVE. PT WAS A BIT MORE CONFUSED THIS AFTERNOON. HE AMBULATED TO THE RESTROOM THIS SHIFT. HE WAS IN THE CHAIR FOR MEALS. HIS APPETITE WAS GOOD. HE IS CURRENTLY IN BED IN THE LOW POSITION CALL LIGHT IN REACH
--- NOTE | 2022-07-03 04:36 | NUR ---
SUMMARY - PATIENT CONFUSED OVERNIGHT. PLEASANT WITH STAFF AND EASILY REDIRECTABLE. ATTEMPTS TO GET OUT OF BED AT NIGHT HE FORGETS WHERE HE IS. NO ACUTE MEDICAL EVENTS OVERNIGHT. VSS. PATIENT ABLE TO AMBULATE TO RESTROOM WITH WALKER STAND BY ASSIST. CALL LIGHT IN REACH. BED IN LOWEST POSITION. THICKNED LIQUIDS PROVIDED. PILLS WHOLE IN APPLESAUCE, PATIENT TOLERATED WELL.
[2022-07-03 09:57] LABS: SARS-Cov-2 (COVID-19) PCR, MMC NEGATIVE (NEGATIVE)
--- NOTE | 2022-07-03 11:15 | NUR ---
DISCHARGE SUMMARY PT DISCHARGED TO [facility]. PT LEFT ROOM VIA WHEELCHAIR WITH TRANSPORTER PRESENT AT 1105. [facility] AT 1108, ALL QUESTIONS ANSWERED. IV DC'D AND BELONGINGS RETURNED.
== END 2022-07-03 11:05 | DRG 682 ==
LOC: ER 15:18 → MEDS 20:14
PROVIDERS: Emergency Medicine; Family Medicine; Student in an Organized Health Care Education/Training Program; ADMIT Student in an Organized Health Care Education/Training Program
DX: N17.9 Acute kidney failure, unspecified (principal); G93.41 Metabolic encephalopathy; E87.0 Hyperosmolality and hypernatremia; I13.0 Hypertensive heart and chronic kidney disease with heart failure and stage 1 through stage 4 chronic kidney disease, or unspecified chronic kidney disease; L03.116 Cellulitis of left lower limb; I50.22 Chronic systolic (congestive) heart failure; E11.22 Type 2 diabetes mellitus with diabetic chronic kidney disease; E87.6 Hypokalemia; N18.31 Chronic kidney disease, stage 3a; R91.1 Solitary pulmonary nodule; I87.2 Venous insufficiency (chronic) (peripheral); I25.10 Atherosclerotic heart disease of native coronary artery without angina pectoris; D63.1 Anemia in chronic kidney disease; R00.1 Bradycardia, unspecified; F03.90 Unspecified dementia, unspecified severity, without behavioral disturbance, psychotic disturbance, mood disturbance, and anxiety; E86.0 Dehydration; F11.10 Opioid abuse, uncomplicated; R13.10 Dysphagia, unspecified; B95.4 Other streptococcus as the cause of diseases classified elsewhere; Z20.822 Contact with and (suspected) exposure to COVID-19; Z79.4 Long term (current) use of insulin; Z79.899 Other long term (current) drug therapy; Z79.811 Long term (current) use of aromatase inhibitors; Z79.51 Long term (current) use of inhaled steroids; I25.2 Old myocardial infarction; Z95.1 Presence of aortocoronary bypass graft; Z98.890 Other specified postprocedural states; Z87.891 Personal history of nicotine dependence; Z85.46 Personal history of malignant neoplasm of prostate
CPT/HCPCS: 0241U; 36415; 70450; 71045; 72125; 76770; 80048; 80053; 81001; 82570; 82728; 82947; 83540; 83550; 83880; 84484; 84540; 85025; 87070; 87075; 87205; 92526; 92610; 93005; 93010; 94760; 96374; 97110; 97116; 97162; 97166; 97530; 97535; 99285-25; A9270; J0696; J1650; J1815; J3480; J7030; J7120; U0004

== ENCOUNTER 2022-10-08 13:32 | Inpatient (IN) | payer OTHER ==
[~2022-10-08] VITALS: Ht 170.2 cm; Wt 81.6 kg
[2022-10-08 14:59] LABS: BASOPHILS ABSOLUTE AUTO 0.03 K/mm3 (0.00-0.23); BASOPHILS PERCENT AUTO 1 % (0-2); EOSINOPHILS ABSOLUTE AUTO 0.06 K/mm3 (0.00-0.68); EOSINOPHILS PERCENT AUTO 1 % (0-6); IMMATURE GRAN ABSOLUTE AUTO 0.02 K/mm3 (0.00-0.10); IMMATURE GRAN PERCENT AUTO 0 % (0-1); LYMPHOCYTES ABSOLUTE AUTO 0.51 K/mm3 (0.84-5.20); LYMPHOCYTES PERCENT AUTO 8 % (21-46); MONOCYTES ABSOLUTE AUTO 0.58 K/mm3 (0.16-1.47); MONOCYTES PERCENT AUTO 9 % (4-13); Mean Corpuscular HGB 27.8 pg (26.0-34.0); Mean Corpuscular HGB Conc 30.6 g/dL (31.5-36.5); Mean Corpuscular Volume 91 fL (80-100); Mean Platelet Volume 11.5 fL (9.1-12.4); NEUTROPHILS ABSOLUTE AUTO 5.36 K/mm3 (1.96-9.15); NEUTROPHILS PERCENT AUTO 82 % (41-73); Platelet Count 162 K/mm3 (150-400); RDW Coefficient Variation 15.7 % (11.7-14.2); RDW Standard Deviation 52.1 fL (35.1-46.3); Red Blood Cell Count 3.95 M/mm3 (4.30-5.90); White Blood Cell Count 6.56 K/mm3 (4.00-11.30)
[2022-10-08 15:39] LABS: Albumin, Blood 2.9 g/dL (3.4-5.0); Albumin/Globulin Ratio 0.6 (0.8-1.8); Bilirubin, Total 0.4 mg/dL (0.1-1.0); Bun/Creatinine Ratio 38.2 (12.0-20.0); Calcium, Blood 8.6 mg/dL (8.5-10.1); Creatinine, Blood 1.91 mg/dL (0.60-1.20); Globulin, Blood 4.6 g/dL (2.2-4.0); Potassium, Blood 5.1 mmol/L (3.5-5.5); Total Protein, Blood 7.5 g/dL (6.4-8.2)
[2022-10-08] MEDS ORDERED: FURO20 PO (16:02)
[2022-10-08] MEDS ORDERED: ATOR40TA PO (16:02)
[2022-10-08] MEDS ORDERED: FURO40 PO (16:03)
[2022-10-08] MEDS ORDERED: METO2.5 PO (16:04)
[2022-10-08] MEDS ORDERED: K-Dur10 MEQ PO (16:05)
[2022-10-08] MEDS ORDERED: Carvedilol12.5 MG PO (16:26)
[2022-10-08 20:03] VITALS: BP 148/51
[2022-10-09 01:45] VITALS: BP 131/53
[2022-10-09 06:13] LABS: Anion Gap Unable to Calculate mmol/L (6-16); Blood Urea Nitrogen 78 mg/dL (8-24); Bun/Creatinine Ratio 49.1 (12.0-20.0); CO2, Blood 35 mmol/L (21-32); Calcium, Blood 8.7 mg/dL (8.5-10.1); Chloride, Blood 105 mmol/L (98-108); Creatinine, Blood 1.59 mg/dL (0.60-1.20); Glomerular Filtration Rate 43 (60-); Glucose, Blood 195 mg/dL (70-99); Potassium, Blood 4.6 mmol/L (3.5-5.5); Sodium, Blood 138 mmol/L (136-145)
--- NOTE | 2022-10-09 06:21 | NUR ---
SHIFT SUMMARY: PT NEW ADMIT FROM ED AT CHANGED OF SHIFT LAST P.M. PT A&OX2. PER REPORT PT HAS HX OF DEMENTIA. THIS SHIFT PT IS PLEASANT AND COOPERATIVE. NO EVIDENCE OF SUNDOWNING OBSERVED. ABLE TO MAKE NEEDS KNOWN AND FOLLOW DIRECTIONS. DENIES ANY FEELINGS OF SOB OR CHEST PAIN. PLACED ON 2-3LPM TO KEEP SATS > 92%. HR IS SINUS REID SUSTAINING IN 40'S WITH OCCASIONAL DIPS INTO HIGH 30'S. PT ASYMPTOMATIC. BLE EDEMA 2 + WITH REDNESS NOTED BILATERLALY ON CALVES, NO OPEN WOUNDS NOTED. VOIDING IN URINAL WITHOUT DIFFICULTY, URINE IS CLEAR/YELLOW. PT IS ORIENTED TO ROOM AND CALL LIGHT. USES CALL LIGHT APPROPIATELY.
[2022-10-09 07:27] VITALS: BP 123/70
--- NOTE | 2022-10-09 11:39 | NUR ---
Spoke with Dr Moyer and discussed case. Pt has dementia with history of Systolic CHF. Pt's echo from a year ago shows EF of 20%. Family may benefit from discussion regarding goals of care. Pt resting in bed and is pleasantly confused. A&OX1. Pt denies pain, nausea, and dyspnea. No S/S of distress at this time. Spoke with Primary RN Any and discussed case. Pt needs assistance with toileting and is occasionaly incontinent. Pt at current condition needs assistance with bathing and dressing. Pt's appetite is poor and only wants to sleep. Called and spoke with Pt's sister Liane who is listed as Healthcare Proxy in H&P. Liane confirms making decisions for Pt. She reports Pt's only living relatives are her and a brother who lives in another state. Listened as Liane reports Pt seeing family consumer science teacher Dr Betancur on a routine bases. She reports her understanding is Pt's heart is not doing well and Dr Irene states Pt is "very sick". Continued therapeutic listening. Engaged in therapeutic conversation regarding goals of care. Liane reports Pt is a DNR. Educated on disease process including trajectory. Discussed hospice as an option and educated on hospice philosophy. Liane reports Pt would want to focus on comfort at this stage in his life and would prefer to avoid hospitalization. Liane is agreeable to hospice services. Discussed hospice agencies to choose from with Liane choosing [facility]. Continued supportive conversation and answered questions. Spoke with Dr Moyer and discussed case. Placed DNR order in [facility] per V/O from Dr Moyer. Spoke with RN Cassius Lin and relayed wishes. Delia will send referral to [facility]. Palliative Care will F/U with sister to complete a POLST
[2022-10-09 14:51] VITALS: BP 139/117
[2022-10-09 16:31] VITALS: BP 129/88
--- NOTE | 2022-10-09 18:08 | NUR ---
SHIFT SUMMARY: TELEMETRY SHOWS HR 40-55, CAVEDILOL HELD. CODE STATUS CHANGED TO DNR PER ADVANCED DIRECTIVE. ON O2 @ 3 L/MIN NC TO MAINTAIN SATS > 92%, ROOM AIR AT BASELINE. SOMNOLENT TODAY, AROUSES TO SPEECH, APPETITE IS POOR, ONLY ATE LUNCH. USING URINAL WITH SBA AT BEDSIDE. DENIED CP, NAUSEA. PALLIATIVE CARE RN STATED POSSIBLE PLAN IS HOME WITH HOSPICE.
[2022-10-09 18:46] VITALS: BP 134/55
[2022-10-09 19:17] VITALS: BP 134/55
[2022-10-10 02:12] VITALS: BP 119/56
--- NOTE | 2022-10-10 06:23 | NUR ---
REQUIRED 3L NC AT TIMES TO MAINTAIN 90% SATURATION OTHERWISE STABLE VS. CONT PULSE OX MAINTAINED THRU SHIFT. AMBULATES X1 ASSIST WITH FWW TO TOILET, CONTINENT, FORGETS LIMITATIONS. NO EVENTS OVER NIGHT.
[2022-10-10 07:57] VITALS: BP 116/64
--- NOTE | 2022-10-10 11:05 | NUR ---
Case Conference Note Called and spoke with Pt's sister Liane (prefers to be addresses by Meaghan). Reviewed plan for Pt to D/C with hospice today. Meaghan is in agreement. Completed POLST over the phone witnessed by PC DONTA Michele via speaker phone. Pt's wishes are DNR and Comfort Measures Only. Dr Moyer signs POLST. Obtained copy of POLST and sent to medical records via hospital tube system. Provided orginal POLST to RN Cassius Lin who will send original POLST with Pt upon D/C. Received call from [facility] admitting RN with request to be contacted when D/C time is known or when Pt is being D/C from the hospital. Relayed request to Pt's Primary RN Angelo. Angelo will contact [facility] when Pt is D/C. Palliative Care will remain available
[2022-10-10] MEDS ORDERED: Lisinopril2.5 MG PO (12:45)
[2022-10-10] MEDS ORDERED: MIRALAX17 GM PO (12:46)
--- NOTE | 2022-10-10 16:36 | NUR ---
PT DISCHARGED HOME, BACK TO [place], ON HOSPICE. DC PACKAGE EXPLAINED TO PT'S SISTER. NO NEW QUESTIONS OR CONCERNS. POLST SENT WITH DC PACKAGE. IV AND TELE DC'D. PT HELPED TO DRESS IN PAPER SCRUBS D/T SOILED HOME CLOTHES. BELONGINGS SENT HOME WITH PT. PT TRANSPORTED BY WHEELCHAIR VIA [facility]. HOSPICE CALLED AND INFORMED THAT PT WAS ON HIS WAY HOME.
== END 2022-10-10 15:09 | disposition hospice, home (50) | DRG 291 ==
LOC: ER 13:32 → ICUW 16:55 → MEDS 16:55
PROVIDERS: Emergency Medicine; ADMIT Internal Medicine
DX: I13.0 Hypertensive heart and chronic kidney disease with heart failure and stage 1 through stage 4 chronic kidney disease, or unspecified chronic kidney disease (principal); I50.23 Acute on chronic systolic (congestive) heart failure; J96.01 Acute respiratory failure with hypoxia; N17.9 Acute kidney failure, unspecified; Z51.5 Encounter for palliative care; Z66 Do not resuscitate; R94.5 Abnormal results of liver function studies; R00.1 Bradycardia, unspecified; I25.10 Atherosclerotic heart disease of native coronary artery without angina pectoris; N18.30 Chronic kidney disease, stage 3 unspecified; E11.22 Type 2 diabetes mellitus with diabetic chronic kidney disease; F03.90 Unspecified dementia, unspecified severity, without behavioral disturbance, psychotic disturbance, mood disturbance, and anxiety; D63.1 Anemia in chronic kidney disease; Z87.891 Personal history of nicotine dependence; Z79.02 Long term (current) use of antithrombotics/antiplatelets; Z85.46 Personal history of malignant neoplasm of prostate; Z95.1 Presence of aortocoronary bypass graft; Z98.890 Other specified postprocedural states; Z79.01 Long term (current) use of anticoagulants; Z79.899 Other long term (current) drug therapy; I25.2 Old myocardial infarction; Z79.4 Long term (current) use of insulin; Z79.811 Long term (current) use of aromatase inhibitors; Z79.51 Long term (current) use of inhaled steroids; Z79.891 Long term (current) use of opiate analgesic
CPT/HCPCS: 36415; 71045; 80048; 80053; 82947; 83880; 84484; 85025; 93005; 93010; 94760; 96374; 99285-25; A9270; J1644; J1815